=== PATIENT | female | born 1980 | race Caucasian/White ===

== ENCOUNTER 2016-11-04 05:22 | Emergency (ER) | payer OTHER, BC, MEDICAID ==
[2016-11-04 05:29] VITALS: BP 122/86
--- NOTE | 2016-11-04 06:09 | ERNOTE ---
Time Seen by Provider: 11/04/16 05:41 Stated Complaint: ASTHMA Presenting Symptoms:: other - wheezing Source: patient Exam Limitations: no limitations Immunizations: IMMUNIZATION HX Immunizations Up to Date Yes History of Influenza Vaccine Yes Hx Pneumococcal Vaccination No Allergies/Adverse Reactions: Allergies aspirin Allergy (Mild, Verified 02/26/16 14:51) asthma issues morphine Allergy (Verified 02/26/16 14:51) Other Home Medications: HOME MEDICATIONS Albuterol Sulfate [Proair Hfa] 8.5 gm IH BID 08/06/12 [Last Taken 06/26/13 08:00 ] Mometasone/Formoterol [Dulera 100 Mcg/5 Mcg Inhaler] 2 puff IH BID 01/27/15 [ Last Taken Unknown] Ibuprofen [Motrin] 800 mg PO QID 02/26/16 [Last Taken Unknown] Lansoprazole [Prevacid] 30 mg PO DAILY 02/26/16 [Last Taken Unknown] Methylphenidate HCl [Ritalin] 20 mg PO TID 02/26/16 [Last Taken Unknown] Carisoprodol [Soma] 250 mg PO QID 11/04/16 [Last Taken Unknown] - History of Present Ilness Narrative: Pt was arrested overnight and had an asthma attack while in custodial. Used an albuterol inhaler 8-10 times and is now asymptomatic Timing: resolved prior to arrival Severity: moderate, severe Frequency/Possible Cause: Reports: occasional episodes Modifying Factors - Improves: Reports: albuterol Associated Symptoms: Reports: denies symptoms Review of Systems - Review of Systems Constitutional: Present: recent illness - reports some URI symptoms lately. Absent: fever EYE: Present: no symptoms reported ENT: Present: no symptoms reported Respiratory: Present: See HPI Cardiology: Present: no symptoms reported Gastrointestinal/Abdominal: Present: no symptoms reported Genitourinary: Present: no symptoms reported Musculoskeletal: Present: no symptoms reported Skin: Present: no symptoms reported Neurological: Present: no symptoms reported Endocrine: Present: no symptoms reported Hematologic/Lymphatic: Present: no symptoms reported Psych: Present: no symptoms reported - Patient's Past Medical History Patient History - Medical: ADHD, Anxiety, Depression, GERD, Migraines Patient History - Cardiac/Respiratory: Asthma, Pneumonia Patient History - Cancer: No Hx of Cancer Patient History - Surgical Procedures: Other, Hernia Repair Patient History - Other: None - Social History Living Situations: home Psych History: Hx of Anxiety, Hx of Depression Smoking Status: Current every day smoker Patient requests Smoking Cessation Consult: No Alcohol Use: none Drug Use: none - Immunizations Immunizations Up to Date: Yes Hx Pneumococcal Vaccination: No History of Influenza Vaccine: Yes Physical Exam - Physical Exam General Appearance: Present: wd/wn, alert, no apparent distress Eye Exam: Normal inspection: bilateral Ears, Nose, Throat: Present: normal ENT inspection Neck: Present: normal inspection, nontender Respiratory: Present: no respiratory distress, no accessory muscle use, wheezing - very faint right side Cardiovascular/Chest: Present: regular rate, rhythm, no murmur, normal peripheral pulses Back Exam: Present: normal inspection, normal range of motion Extremity Exam: Present: normal inspection, no edema Neurological Exam: Present: alert, oriented, normal mood/affect Skin Exam: Present: normal color, warm/dry Lymphatic Exam: Present: no adenopathy ED Progress - Vital Signs Vital Signs: Vital Signs 11/04/16 05:25 Temperature 37.5 C Pulse Rate 76 Respiratory 16 Rate Blood Pressure 122/86 O2 Sat by Pulse 97 Oximetry - Progress/Reassessment Chief Complaint: Asthma Progress Note-Subjective: 11/04/16 06:07 offered steroid injection due to frequent asthma symptoms lately. Pt declined and states that she has prednisone at home if she needs to start it. Departure - Departure Clinical Impression: Asthma attack Disposition: Home self-care Condition: Good Instructions: Asthma, Acute Bronchospasm Additional Instructions: Take your medication as prescribed. Follow up with your regular doctor as needed
== END 2016-11-04 06:00 | disposition home or self-care (01) ==
LOC: ER 05:22
DX: J45.902 Unspecified asthma with status asthmaticus (principal); Z72.0 Tobacco use; K21.9 Gastro-esophageal reflux disease without esophagitis; F41.8 Other specified anxiety disorders